=== PATIENT | female | born 1980 | race Caucasian/White ===

== ENCOUNTER 2022-08-28 10:40 | Outpatient (CLI) | payer BC, SELFPAY | END 2022-08-28 10:41 | disposition home or self-care (01) | PROVIDERS: PCP Family Medicine; Referring Provider Family Medicine; Visit Provider Obstetrics & Gynecology | DX: R31.9 Hematuria, unspecified (principal); R82.90 Unspecified abnormal findings in urine | CPT/HCPCS: 87086 ==

== ENCOUNTER 2025-02-03 18:48 | Outpatient (CLI) | payer BC, SELFPAY ==
--- NOTE | 2025-02-03 19:00 | MR_ITS ---
EXAM: MRI OF THE RIGHT KNEE WITHOUT CONTRAST CLINICAL HISTORY: Right knee pain. Evaluate quadriceps tendon and medial compartment. COMPARISONS: None available. TECHNICAL: MR sequences of the right knee: sagittals: PD, PDFS coronals: PD, STIR axials: PD, T2 FS CONTRAST: None SEDATION: None FINDINGS: Bones: No fracture, bone marrow contusion, or other suspicious bone marrow signal abnormality. Patellofemoral joint: Cartilage: 2 x 2 mm focus of slitlike delamination at the subchondral bone plate-cartilage interface over the median patellar ridge-lateral patellar facet junction and suspected associated slitlike full-thickness chondral fissure with slight focal subjacent subchondral cystic change best seen on axial series 5 image 9 and sagittal series 7 image 15. Retinacula: The medial and lateral retinacula are intact. Fat pads: The infrapatellar, quadriceps, and prefemoral fat pads are unremarkable. Knee joint: Effusion: Physiologic amount of joint fluid. Popliteal cyst: None. Intra-articular bodies: None. Posteromedial corner: The semimembranosus and pes anserine tendons are intact. Medial compartment: Medial meniscus: Intact. Cartilage: Intact. Lateral compartment: Lateral meniscus: Intact. Cartilage: Intact. Ligaments: Anterior cruciate ligament: Intact. Posterior cruciate ligament: Intact. Medial collateral ligament: Intact. Posterior oblique ligament: Intact. Fibular collateral ligament: Intact. Posterolateral corner: The distal biceps femoris tendon, iliotibial band, popliteus tendon, popliteus muscle, popliteofibular ligament, and arcuate ligament are intact. Extensor mechanism: Patellar tendon: Interstitial delamination within and slight tendinopathy of the distal quadriceps tendon. Quadriceps tendon: Intact. IMPRESSION: 1. 2 x 2 mm focus of slitlike delamination at the subchondral bone plate- cartilage interface over the median patellar ridge-lateral patellar facet junction and suspected associated slitlike full-thickness chondral fissure with slight focal subjacent subchondral cystic change. 2. Interstitial delamination within and slight tendinopathy of the distal quadriceps tendon. 3. No ligamentous or meniscal pathology of the right knee. RCB Electronically signed on 02/04/2025 11:13:00 AM by Karlo Hartman M.D.
== END 2025-02-03 18:49 | disposition home or self-care (01) ==
LOC: MRI 18:48
PROVIDERS: PCP Family Medicine; Visit Provider Physician Assistant
DX: M25.561 Pain in right knee (principal); M76.891 Other specified enthesopathies of right lower limb, excluding foot
CPT/HCPCS: 73721